=== PATIENT | female | born 1975 | race Caucasian/White ===

== ENCOUNTER → 2017-11-03 | Outpatient (CLI) | payer OTHER ==
[~2017-11-03] MED LIST: ACETAMINOPHEN500 MG PO; B Complex1 EAC2; B Complex1 EAC2 PO; BUTALB-ACETAMI1 EAC1 PO; CEPH500 PO; Flonase 0.05% N16 GM; HYDR1TAB94 PO; IBUP400 PO; MELATONIN5 M1 PO; MULVITMINE; NITR100; NITR100 PO; Non-Aspirin Ex500 MG PO; OMEP20ER; OXYB5 PO; POTCIT10; Pyridium100 MG PO; SPIHYD PO; VITAMIN D-32000 UNIT PO
[2017-11-07 14:02] LABS: Stool Occult Bld Immuno 1 Negative (NEGATIVE)
== END | disposition home or self-care (01) ==
LOC: OLS 18:00
PROVIDERS: Nurse Practitioner Family
DX: D64.9 Anemia, unspecified (principal)
CPT/HCPCS: 82274

== ENCOUNTER 2018-06-04 06:39 | Day surgery (SDC) | payer OTHER ==
[~2018-06-04] VITALS: Ht 167.6 cm; Wt 100.9 kg
== END 2018-06-04 08:55 | disposition home or self-care (01) ==
LOC: ORSCSDS 06:39
PROVIDERS: Internal Medicine Gastroenterology
PROC: 0DJD8ZZ Inspection of Lower Intestinal Tract, Via Natural or Artificial Opening Endoscopic (ICD-10-PCS; principal; 2018-06-04 08:00)
DX: Z12.11 Encounter for screening for malignant neoplasm of colon (principal); K64.8 Other hemorrhoids; Z86.010 Personal history of colon polyps; I10 Essential (primary) hypertension; D53.9 Nutritional anemia, unspecified
CPT/HCPCS: J0330; J1980; J2405; J7120

== ENCOUNTER 2018-10-04 00:38 | Emergency (ER) | payer OTHER ==
[~2018-10-04] VITALS: Ht 165.1 cm; Wt 102.1 kg
[~2018-10-04 00:38] MED LIST changes: -Non-Aspirin Ex500 MG PO; +Tylenol325 MG PO
[2018-10-04] MEDS ORDERED: LIVER SUPPLEMENT (01:35)
[2018-10-04 02:28] LABS: Troponin I <0.015 ng/mL (0.000-0.040)
[2018-10-04 02:31] LABS: BASOPHILS ABSOLUTE AUTO 0.07 K/mm3 (0.00-0.23); BASOPHILS PERCENT AUTO 1 % (0-2); EOSINOPHILS ABSOLUTE AUTO 0.53 K/mm3 (0.00-0.68); EOSINOPHILS PERCENT AUTO 6 % (0-6); Hemoglobin 14.3 g/dL (11.5-16.0); IMMATURE GRAN ABSOLUTE AUTO 0.05 K/mm3 (0.00-0.10); IMMATURE GRAN PERCENT AUTO 1 % (0-1); LYMPHOCYTES PERCENT AUTO 24 % (21-46); MONOCYTES PERCENT AUTO 9 % (4-13); Mean Corpuscular HGB Conc 34.9 g/dL (31.5-36.5); Mean Corpuscular Volume 86 fL (80-100); NEUTROPHILS ABSOLUTE AUTO 5.35 K/mm3 (1.96-9.15); NEUTROPHILS PERCENT AUTO 60 % (41-73); Platelet Count 410 K/mm3 (150-400); RDW Coefficient Variation 12.3 % (11.7-14.2); RDW Standard Deviation 38.6 fL (35.1-46.3); Red Blood Cell Count 4.76 M/mm3 (3.80-5.20)
[2018-10-04 02:45] LABS: Alanine Aminotransfer (ALT/SGP 41 U/L (12-78); Albumin, Blood 3.8 g/dL (3.4-5.0); Albumin/Globulin Ratio 0.9 (0.8-1.8); Alk Phos 84 U/L (50-136); Anion Gap 11 mmol/L (6-16); Aspartate Aminotrans (AST/SGOT 28 U/L (12-37); Bilirubin, Total 0.5 mg/dL (0.1-1.0); Blood Urea Nitrogen 13 mg/dL (8-24); Bun/Creatinine Ratio 23.2 (12.0-20.0); CO2, Blood 24 mmol/L (21-32); Chloride, Blood 101 mmol/L (98-108); Creatinine, Blood 0.56 mg/dL (0.40-1.00); Globulin, Blood 4.3 g/dL (2.2-4.0); Glomerular Filtration Rate >60 (60-); Glucose, Blood 134 mg/dL (70-99); Sodium, Blood 136 mmol/L (136-145); Total Protein, Blood 8.1 g/dL (6.4-8.2)
[2018-10-04] MEDS ORDERED: Protonix40 MG PO (03:16)
[2018-11-06] MEDS ORDERED: PROG100 PO (14:47)
[2018-11-06] MEDS ORDERED: VIT D (14:49)
[2018-11-06] MEDS ORDERED: VITAMIN B12 (14:49)
== END 2018-10-04 04:25 | disposition home or self-care (01) ==
LOC: ER 00:38
PROVIDERS: Emergency Medicine
DX: K21.9 Gastro-esophageal reflux disease without esophagitis (principal); D64.9 Anemia, unspecified; Z79.899 Other long term (current) drug therapy
CPT/HCPCS: 36415; 71046; 80053; 83690; 84484; 85025; 93005; 93010; 99284-25

== ENCOUNTER 2018-11-15 09:04 | Day surgery (SDC) | payer OTHER ==
[~2018-11-15] VITALS: Ht 167.6 cm; Wt 99.7 kg
[~2018-11-15 09:04] MED LIST changes: +LIVER SUPPLEMENT; +PROG100 PO; +Protonix40 MG PO; +VIT D; +VITAMIN B12
--- NOTE | 2018-11-15 13:42 | NUR ---
11/15/18 1342 Meagan Davis DELAYED ENTRY 1148 PT C/O ABD PAIN UPON ARRIVAL TO SDU. PT POINTS TO HER STOMACH. PT STATES ABD PAIN SLIGHTLY RESOLVED PRIOR TO DC. RN INSTRUCTED PT TO CALL IF ABD PAIN GETS WORSE OR IF NOT RELIEVED BY PASSING AIR.
== END 2018-11-15 12:09 | disposition home or self-care (01) ==
LOC: ORSCSDS 09:04
PROVIDERS: Internal Medicine Gastroenterology
PROC: 0DB68ZX Excision of Stomach, Via Natural or Artificial Opening Endoscopic, Diagnostic (ICD-10-PCS; principal; 2018-11-15 10:30)
PROC: 0D758ZZ Dilation of Esophagus, Via Natural or Artificial Opening Endoscopic (ICD-10-PCS; principal; 2018-11-15 10:30)
PROC: 0DBN8ZX Excision of Sigmoid Colon, Via Natural or Artificial Opening Endoscopic, Diagnostic (ICD-10-PCS; principal; 2018-11-15 10:30)
PROC: 0DBE8ZX Excision of Large Intestine, Via Natural or Artificial Opening Endoscopic, Diagnostic (ICD-10-PCS; principal; 2018-11-15 10:30)
PROC: 0DB98ZX Excision of Duodenum, Via Natural or Artificial Opening Endoscopic, Diagnostic (ICD-10-PCS; principal; 2018-11-15 10:30)
PROC: 0DBL8ZX Excision of Transverse Colon, Via Natural or Artificial Opening Endoscopic, Diagnostic (ICD-10-PCS; principal; 2018-11-15 10:30)
PROC: 0DB58ZX Excision of Esophagus, Via Natural or Artificial Opening Endoscopic, Diagnostic (ICD-10-PCS; principal; 2018-11-15 10:30)
DX: K21.9 Gastro-esophageal reflux disease without esophagitis (principal); R13.10 Dysphagia, unspecified; R10.13 Epigastric pain; R19.7 Diarrhea, unspecified; D50.9 Iron deficiency anemia, unspecified; K62.1 Rectal polyp; D12.3 Benign neoplasm of transverse colon; K57.30 Diverticulosis of large intestine without perforation or abscess without bleeding; K64.8 Other hemorrhoids; I10 Essential (primary) hypertension; J45.909 Unspecified asthma, uncomplicated; Z79.899 Other long term (current) drug therapy
CPT/HCPCS: 88305; 88342; J2250; J7120

== ENCOUNTER 2019-08-28 09:09 | Day surgery (SDC) | payer OTHER ==
[2019-08-27 12:25] LABS: BASOPHILS ABSOLUTE AUTO 0.06 K/mm3 (0.00-0.23); BASOPHILS PERCENT AUTO 1 % (0-2); EOSINOPHILS ABSOLUTE AUTO 0.26 K/mm3 (0.00-0.68); EOSINOPHILS PERCENT AUTO 4 % (0-6); Hematocrit 41.7 % (33.0-51.0); Hemoglobin 13.4 g/dL (11.5-16.0); IMMATURE GRAN ABSOLUTE AUTO 0.02 K/mm3 (0.00-0.10); IMMATURE GRAN PERCENT AUTO 0 % (0-1); LYMPHOCYTES ABSOLUTE AUTO 1.62 K/mm3 (0.84-5.20); LYMPHOCYTES PERCENT AUTO 25 % (21-46); MONOCYTES ABSOLUTE AUTO 0.51 K/mm3 (0.16-1.47); MONOCYTES PERCENT AUTO 8 % (4-13); Mean Corpuscular HGB 27.1 pg (26.0-34.0); Mean Corpuscular HGB Conc 32.1 g/dL (31.5-36.5); Mean Corpuscular Volume 84 fL (80-100); Mean Platelet Volume 10.1 fL (9.1-12.4); NEUTROPHILS ABSOLUTE AUTO 3.92 K/mm3 (1.96-9.15); NEUTROPHILS PERCENT AUTO 61 % (41-73); Platelet Count 375 K/mm3 (150-400); RDW Coefficient Variation 12.7 % (11.7-14.2); RDW Standard Deviation 38.4 fL (35.1-46.3); Red Blood Cell Count 4.95 M/mm3 (3.80-5.20); White Blood Cell Count 6.39 K/mm3 (4.00-11.30)
[~2019-08-28] VITALS: Ht 165.1 cm; Wt 89.6 kg
[~2019-08-28 09:09] MED LIST changes: +VITAMIN D5000 UNIT PO
--- NOTE | 2019-08-28 09:46 | NUR ---
PT ADMITTED TO [facility]. AGREES WITH PLANNED SURGERY. LUNG SOUNDS CLEAR.
--- NOTE | 2019-08-28 16:30 | NUR ---
PT GAVE [employer] PERMISSION TO PROVIDE CARE ON 08/28/19.
--- NOTE | 2019-08-28 19:01 | NUR ---
PT HAS BEEN STABLE POST OP. PT HAS HAD INTENSE PAIN IN LOW BACK, KPAD PLACED. MEDICATED FOR PAIN PER EMAR. PT ABLE TO GET UP TO CHAIR. FAYE DRAINING WELL. TO BE DC'D IN THE AM. AM CBC. FLUIDS CAN BE SL IN AM. PT MAY ADVANCE DIET TOLERATED. ABD INCISIONS CDI. NO ROMELIA DRAINAGE. PT USES CALL LIGHT APPROPRIATELY.
[2019-08-29 04:51] LABS: BASOPHILS ABSOLUTE AUTO 0.01 K/mm3 (0.00-0.23); BASOPHILS PERCENT AUTO 0 % (0-2); EOSINOPHILS ABSOLUTE AUTO 0.03 K/mm3 (0.00-0.68); EOSINOPHILS PERCENT AUTO 0 % (0-6); Hematocrit 35.6 % (33.0-51.0); Hemoglobin 11.4 g/dL (11.5-16.0); IMMATURE GRAN ABSOLUTE AUTO 0.03 K/mm3 (0.00-0.10); IMMATURE GRAN PERCENT AUTO 0 % (0-1); LYMPHOCYTES ABSOLUTE AUTO 1.44 K/mm3 (0.84-5.20); LYMPHOCYTES PERCENT AUTO 12 % (21-46); MONOCYTES ABSOLUTE AUTO 0.97 K/mm3 (0.16-1.47); MONOCYTES PERCENT AUTO 8 % (4-13); Mean Corpuscular HGB 27.6 pg (26.0-34.0); Mean Corpuscular Volume 86 fL (80-100); Mean Platelet Volume 10.6 fL (9.1-12.4); NEUTROPHILS ABSOLUTE AUTO 9.55 K/mm3 (1.96-9.15); NEUTROPHILS PERCENT AUTO 79 % (41-73); Platelet Count 355 K/mm3 (150-400); RDW Coefficient Variation 12.6 % (11.7-14.2); RDW Standard Deviation 39.7 fL (35.1-46.3); Red Blood Cell Count 4.13 M/mm3 (3.80-5.20); White Blood Cell Count 12.03 K/mm3 (4.00-11.30)
--- NOTE | 2019-08-29 07:15 | NUR ---
rocky d/c'd pt wanting to get up and wash her face and brush her teeth also reported h/a this am and re coffee pt denies nausea has not passed flatus belching no vag bleeding discussed with pt when rocky comes out you somes times do
--- NOTE | 2019-08-29 07:32 | NUR ---
SUMMARY PT HOPING TO GO HOME THIS AM. NO VAG BLEED. IV FLUIDS INFUSING T/O NIGHT. VERB PAIN MEDS EFFECTIVE.ABD DSNGS D/I.UP IN CHAIR TONIGHT.
--- NOTE | 2019-08-29 09:51 | NUR ---
wondercindy by to see pt up amb in hallway
--- NOTE | 2019-08-29 10:29 | NUR ---
pt back in bed voided small amt of vag bleeding wanting to try to sleep for awhile
--- NOTE | 2019-08-29 12:00 | NUR ---
pt eating lunch sitting up in chair
[2019-08-29] MEDS ORDERED: MELATONIN5 M1 (18:38)
[2019-08-29] MEDS ORDERED: Milk Of Ma400 MG/5 M PO (18:39)
[2019-08-29] MEDS ORDERED: DOCU100 PO (18:39)
[2019-08-29] MEDS ORDERED: Percocet 5-3251 EACH PO (18:41)
[2019-08-29] MEDS ORDERED: PROM25 PO (18:42)
[2019-08-29] MEDS ORDERED: SIME80CH PO (18:42)
--- NOTE | 2019-08-29 18:44 | NUR ---
DR MCCLELLAN BY TO SEE PT OK TO DISCHARGE HOME RX GIVEN TO HE WENT TO FILL MEDS
--- NOTE | 2019-08-29 19:15 | NUR ---
discharge instructions reviewed with pt verbalized no acute changes
== END 2019-08-29 18:50 | disposition home or self-care (01) ==
LOC: ORSCMMR 09:09 → ORD 10:15 → ORSCMMR 10:45 → SURS 15:37 → ORSCMMR 08-29 18:50
PROVIDERS: Obstetrics & Gynecology
DX: N92.1 Excessive and frequent menstruation with irregular cycle (principal); N92.5 Other specified irregular menstruation; D25.9 Leiomyoma of uterus, unspecified
CPT/HCPCS: 58552; S2900; 36415; 85025; 86850; 86900; 86901; 88307; J0690; J1100; J1885; J2250; J2370; J2405; J2704; J2710; J2765; J3010; J7030; J7120

== ENCOUNTER → 2020-10-04 | Outpatient (CLI) | payer OTHER ==
[~2020-10-04] MED LIST changes: +DOCU100 PO; +MELATONIN5 M1; +Milk Of Ma400 MG/5 M PO; +PROM25 PO; +Percocet 5-3251 EACH PO; +SIME80CH PO
== END | disposition home or self-care (01) ==
LOC: LAB SHORT 10:45
DX: R10.13 Epigastric pain (principal)
CPT/HCPCS: 87338

== ENCOUNTER → 2021-07-11 | Outpatient (CLI) | payer OTHER | END | disposition home or self-care (01) | LOC: LAB SHORT 12:55 | DX: L98.9 Disorder of the skin and subcutaneous tissue, unspecified (principal) | CPT/HCPCS: 88305; 88312 ==

== ENCOUNTER → 2022-12-05 | Outpatient (CLI) | payer OTHER ==
[2022-12-05 16:18] LABS: BASOPHILS ABSOLUTE AUTO 0.06 K/mm3 (0.00-0.23); BASOPHILS PERCENT AUTO 1 % (0-2); EOSINOPHILS ABSOLUTE AUTO 0.31 K/mm3 (0.00-0.68); EOSINOPHILS PERCENT AUTO 4 % (0-6); Hemoglobin 14.1 g/dL (11.5-16.0); IMMATURE GRAN ABSOLUTE AUTO 0.02 K/mm3 (0.00-0.10); IMMATURE GRAN PERCENT AUTO 0 % (0-1); LYMPHOCYTES ABSOLUTE AUTO 1.84 K/mm3 (0.84-5.20); LYMPHOCYTES PERCENT AUTO 24 % (21-46); MONOCYTES ABSOLUTE AUTO 0.69 K/mm3 (0.16-1.47); MONOCYTES PERCENT AUTO 9 % (4-13); Mean Corpuscular HGB 27.9 pg (26.0-34.0); Mean Corpuscular HGB Conc 34.4 g/dL (31.5-36.5); Mean Corpuscular Volume 81 fL (80-100); Mean Platelet Volume 9.7 fL (9.1-12.4); NEUTROPHILS ABSOLUTE AUTO 4.87 K/mm3 (1.96-9.15); NEUTROPHILS PERCENT AUTO 62 % (41-73); Platelet Count 397 K/mm3 (150-400); RDW Coefficient Variation 12.6 % (11.7-14.2); RDW Standard Deviation 37.2 fL (35.1-46.3); Red Blood Cell Count 5.05 M/mm3 (3.80-5.20); White Blood Cell Count 7.79 K/mm3 (4.00-11.30)
[2022-12-05 16:35] LABS: Albumin, Blood 4.3 g/dL (3.4-5.0); Albumin/Globulin Ratio 1.1 (0.8-1.8); Bilirubin, Total 0.4 mg/dL (0.1-1.0); Bun/Creatinine Ratio 16.5 (12.0-20.0); Calcium, Blood 9.2 mg/dL (8.5-10.1); Creatinine, Blood 0.85 mg/dL (0.40-1.00); Globulin, Blood 3.8 g/dL (2.2-4.0); Potassium, Blood 3.7 mmol/L (3.5-5.5); Thyroid Stimulating Hormone 1.712 uIU/mL (0.360-4.800); Total Protein, Blood 8.1 g/dL (6.4-8.2)
== END ==
LOC: LAB 16:12 → LAB SHORT 16:12
PROVIDERS: Physician Assistant
DX: I10 Essential (primary) hypertension (principal); R53.83 Other fatigue; R82.81 Pyuria
CPT/HCPCS: 80053; 82607; 83690; 84443; 85025